=== PATIENT | female | born 1995 | race Caucasian/White ===

== ENCOUNTER 2016-07-31 08:37 | Emergency (ER) | payer BC ==
[2016-07-31 08:50] VITALS: BP 117/60
--- NOTE | 2016-07-31 09:09 | UC ---
Eye Complaint HPI - HPI Summary HPI Summary: 1) L eye itchy, foul drainage, swollen x 2-3 days. Denies photophobia, FB sensation, pain, or visual disturbance. No recent grinding, welding, or overhead work. No contact lens use. 2) itchy bumpy rash on R 3rd lateral finger for "a few weeks." 3) 3 round patches of dry skin on L neck for some days - History of Current Complaint Chief Complaint: UCEye Stated Complaint: EYE COMPLAINT/RASH Time Seen by Provider: 07/31/16 08:45 Hx Obtained From: Patient Hx Last Menstrual Period: 07/09/16 ?: No Onset/Duration: Gradual Onset, Lasting Days Timing: Constant Severity Initially: Mild Severity Currently: Mild Location of Injury: Conjunctiva Aggravating Factor(s): Nothing Alleviating Factor(s): Nothing Associated Signs And Symptoms: Positive: Drainage (Purulent), Swelling. Negative: Photophobia, Vision Impairment Bilateral - Risk Factors Penetrating Injury Risk Factor: Negative Globe Rupture Risk Factors: Negative Acute Glaucoma Risk Factors: Negative - Allergies/Home Medications Allergies/Adverse Reactions: Allergies Allergy/AdvReac Type Severity Reaction Status Date / Time No Known Allergies Allergy Verified 07/31/16 08:45 Home Medications: Home Medications Butalb/Acetamin/Caff TAB* [Fioricet TAB*] 1 tab PO Q6H PRN 07/31/16 [History Confirmed 07/31/16] PMH/Surg Hx/FS Hx/Imm Hx Endocrine History Of: Denies: Diabetes, Thyroid Disease Cardiovascular History Of: Denies: Cardiac Disorders, Hypertension, Pacemaker/ICD Respiratory History Of: Denies: COPD, Asthma GI/ History Of: Denies: Ulcer, Renal Disease - Surgical History Surgical History: Yes Surgery Procedure, Year, and Place: TORN RIGHT ACL REPAIR 04/2013. ADENOIDS 1999 - Family History Known Family History: Negative: Blood Disorder - Social History Occupation: Student Lives: Alone Alcohol Use: Occasionally Substance Use Type: None Smoking Status (MU): Never Smoked Tobacco Review of Systems Constitutional: Negative Skin: Rash Eyes: Drainage, Eye Redness ENT: Negative Respiratory: Negative Cardiovascular: Negative Gastrointestinal: Negative Genitourinary: Negative Motor: Negative Neurovascular: Negative Musculoskeletal: Negative Neurological: Negative Psychological: Negative All Other Systems Reviewed And Are Negative: Yes Physical Exam Triage Information Reviewed: Yes Appearance: Well-Appearing, No Pain Distress, Well-Nourished Vital Signs: Initial Vital Signs Temp 97.6 F 07/31/16 08:46 Pulse 60 07/31/16 08:46 Resp 16 07/31/16 08:46 BP 117/60 07/31/16 08:46 Pulse Ox 100 07/31/16 08:46 Vital Signs Reviewed: Yes Eye Exam: Other - PERRL, no photophobia Eyes: Positive: Conjunctiva Inflamed - L, Discharge - purulent, Other: - L eyelid swelling (upper and lower) ENT Exam: Normal ENT: Positive: Normal ENT inspection, Hearing grossly normal, Pharynx normal, TMs normal Dental Exam: Normal Neck exam: Normal Neck: Positive: Supple, Nontender, No Lymphadenopathy Respiratory Exam: Normal Respiratory: Positive: Chest non-tender, Lungs clear, Normal breath sounds, No respiratory distress, No accessory muscle use Cardiovascular Exam: Normal Cardiovascular: Positive: RRR, No Murmur Musculoskeletal Exam: Normal Neurological Exam: Normal Neurological: Positive: Alert Psychological Exam: Normal Skin: Positive: rashes - 3cm x 2cm area of small flesh-colored vesicles on R 3rd finger., significant lesion(s) - 3 round flat faint macules 1-3cm in diameter with fine scale Eye Complaint Course/Dx - Differential Dx/Diagnosis Provider Diagnoses: L conjunctivitis, suspect bacterial. R hand dyshidrotic eczema. L neck tinea corporis Discharge - Discharge Plan Condition: Stable Disposition: HOME Prescriptions: Ciprofloxacin 0.3% OPTH.GAL* [Cipro 0.3% Opth*] 2 drop LEFT EYE QID #5 ml Patient Education Materials: Conjunctivitis (ED), Eczema (ED), Tinea Corporis ( ED) Referrals: Hoda Cabrera MD [Primary Care Provider] - Additional Instructions: Use the eye drops until you have been symptom-free for 48 hours. Make sure you keep the itchy area on your finger well-moisturized, and you can try using OTC hydrocortisone cream 3 times per day for up to 2 weeks. Try using antifungal cream on the spots on your neck also for 1-2 weeks; I expect them to completely resolve.
== END 2016-07-31 09:20 | disposition home or self-care (01) ==
LOC: UCEAST 08:37
DX: H10.9 Unspecified conjunctivitis (principal); L30.1 Dyshidrosis [pompholyx]; B35.4 Tinea corporis
CPT/HCPCS: 99212; G0463

== ENCOUNTER 2016-12-04 16:47 | Emergency (ER) | payer BC ==
[2016-12-04 18:03] LABS: Hematocrit 42 % (35-47); Hemoglobin 14.2 g/dl (12.0-16.0); Mean Corpuscular HGB Conc 34 g/dl (31-36); Mean Corpuscular Hemoglobin 28 pg (27-31); Mean Corpuscular Volume 85 fL (80-97); Mean Platelet Volume 8 um3 (7.4-10.4); Red Cell Distribution Width 14 % (10.5-15); White Blood Count 13.4 10^3/ul (3.5-10.8)
[2016-12-04 18:14] LABS: ALT 12 U/L (7-52); AST 20 U/L (13-39); Albumin 4.5 g/dL (3.2-5.2); Alkaline Phosphatase 62 U/L (34-104); Anion Gap 8 mmol/L (2-11); BUN/Creatinine Ratio 24.7 (8-20); Blood Urea Nitrogen 21 mg/dL (6-24); C Reactive Protein 2.16 mg/L (< 5.00); CO2 Carbon Dioxide 26 mmol/L (22-32); Calcium 9.7 mg/dL (8.6-10.3); Chloride 102 mmol/L (101-111); EGFR African American 108.6 (>60); EGFR Non-African American 84.4 (>60); Glucose 84 mg/dL (70-100); Lipase 34 U/L (11.0-82.0); Potassium 3.8 mmol/L (3.5-5.0); Sodium 136 mmol/L (133-145); Total Protein 7.5 g/dL (6.4-8.9); Urine Bacteria Absent (Absent); Urine Bilirubin Negative (Negative); Urine Glucose Negative (Negative); Urine Nitrite Negative (Negative)
--- NOTE | 2016-12-04 19:37 | RAD ---
HISTORY: Right upper quadrant pain COMPARISONS: None TECHNIQUE: Multiple transverse and longitudinal ultrasound images were obtained of the right upper quadrant. FINDINGS: LIVER: The liver is normal in size measuring 18.5 cm in greatest dimension. There is increased echogenicity at the interface between the portal veins and portal venous radicles and adjacent liver parenchyma creating the "starry elly" appearance. Normal hepatic and portal venous blood flow is duplicated with color flow imaging. There is no gross intrahepatic biliary duct dilatation. GALLBLADDER AND EXTRAHEPATIC BILIARY DUCT: The gallbladder is normal in appearance without intraluminal stones or other soft tissue masses. There is no pericholecystic fluid or gallbladder wall thickening. The common bile duct measures a maximum diameter of 4 mm. PANCREAS: The portions of the pancreas not obscured by bowel gas are normal in appearance. RIGHT KIDNEY: The right kidney is normal in size, morphology and echogenicity. AORTA AND IVC: The visualized portions are normal in appearance and not pathologically dilated. IMPRESSION: "STARRY ELLY" APPEARANCE OF THE LIVER IS A NONSPECIFIC SONOGRAPHIC FINDING SOMETIMES ASSOCIATED WITH MULTIPLE ETIOLOGIES INCLUDING ACUTE HEPATITIS. PLEASE CORRELATE TO LFTS AND OTHER RELEVANT LABORATORY VALUES. THE EXAMINATION IS OTHERWISE NORMAL.
[2016-12-04] MEDS ORDERED: NS 0.9% 1000 ML* 1,000 ML IV ONE (20:57)
[2016-12-04] MEDS ORDERED: Iohexol 300* (CONTRAST) 10 ML SDV IV ONE (21:25)
--- NOTE | 2016-12-05 00:24 | ED ---
Dannie Jaimes Rebecca, scribed for Del Alcantar MD on 12/04/16 at 2035 . Progress - Progress Note Progress Note: PT was signed out from Dr. Wagoner, pending disposition, awaiting US and CT. - Results/Orders Results/Orders: Gallbladder US, as read by radiologist, reveals: "STARRY RAJ" APPEARANCE OF THE LIVER IS A NONSPECIFIC SONOGRAPHIC FINDING SOMETIMES ASSOCIATED WITH MULTIPLE ETIOLOGIES INCLUDING ACUTE HEPATITIS. PLEASE CORRELATE TO LFTS AND OTHER RELEVANT LABORATORY VALUES. THE EXAMINATION IS OTHERWISE NORMAL. ED physician reviewed radiology report and agrees. CT Abd/Pel, as read by radiologist, reveals: The appendix is not well-visualized. However, there is no right para-cecal inflammation or inflammatory mass. No bowel obstruction, free air, or free fluid. Negative for diverticulitis or colitis. Normal kidneys urinary tract and urinary bladder. Normal gallbladder. Normal spleen. Normal pancreas. Normal adrenal glands. 2.1 cm right adnexal cyst. ED physician reviewed radiology report and agrees. Re-Evaluation - Re-Evaluation First Eval Re-Evaluation Time: 20:54 Change: Unchanged Comment: Reviewed the CT with the pt, which is negative. Explained that she has a R ovarian cyst, which is causing her pain and to follow up with [facility]. Course/Dx - Course Course Of Treatment: PT was signed out from Dr. Wagoner, pending disposition, awaiting US and CT. Gallbladder US, as read by radiologist, reveals: "STARRY RAJ" APPEARANCE OF THE LIVER IS A NONSPECIFIC SONOGRAPHIC FINDING SOMETIMES. ASSOCIATED WITH MULTIPLE ETIOLOGIES INCLUDING ACUTE HEPATITIS. PLEASE CORRELATE TO LFTS. AND OTHER RELEVANT LABORATORY VALUES. THE EXAMINATION IS OTHERWISE NORMAL. ED physician reviewed radiology report and agrees. CT Abd/Pel, as read by radiologist, reveals: The appendix is not well-visualized. However, there is no right para-cecal inflammation or inflammatory mass. No bowel obstruction, free air, or free fluid. Negative for diverticulitis or colitis. Normal kidneys urinary tract and urinary bladder. Normal gallbladder. Normal spleen. Normal pancreas. Normal adrenal glands. 2.1 cm right adnexal cyst. ED physician reviewed radiology report and agrees. The patient is stable and will be D/C to home with Dx of abdominal pain and a follow up with her PCP. She understands and agrees. Elevated BP noted and advised to f/u. - Diagnoses Provider Diagnoses: Abdominal pain The documentation as recorded by the Dannie butterfield Rebecca accurately reflects the service I personally performed and the decisions made by me, Del Alcantar MD.
[2016-12-05 00:30] VITALS: BP 122/66
--- NOTE | 2016-12-05 08:09 | RAD ---
INDICATION: Mid RIGHT abdominal pain; concern for potential appendicitis. COMPARISON: RIGHT upper quadrant ultrasound of the same date. TECHNIQUE: Multidetector CT images were obtained from the lung bases to the ischial tuberosities with 91 mL Omnipaque 300 IV and oral contrast. Multiplanar reformation. REPORT: Unremarkable visualized inferior thorax. Decreased density of the liver consistent with fatty infiltration. No focal hepatic lesions or biliary dilatation. No CT abnormality of the gallbladder, pancreas, spleen. Negative for CT abnormality of the upper GI or small bowel. While the appendix is not discretely visualized, there is no inflammatory change in the right lower quadrant or region of the tip of the cecum to suggest presence of an acute inflammatory process. Enteric contrast extends to the descending colon. No CT abnormality of the colon. Physiologic range small volume of free fluid in the cul-de-sac. Negative for free air or hernias. Normal adrenal glands. Unremarkable kidneys with symmetric nephrograms and pyelograms. Unremarkable nondilated ureters and moderately distended urinary bladder. Multiple pelvic phleboliths noted. Unremarkable rightward deviated anteverted uterus and LEFT adnexal region. 2.3 cm maximum dimension well-circumscribed hypodense although denser than water structure at the RIGHT ovary likely represents a hemorrhagic cyst. This is a low suspicion lesion given small size. Negative for lymphadenopathy. Normal diameter abdominal aorta and iliac arteries. Physiologic distention of the IVC. Negative for suspicious osseous lesions. IMPRESSION: 1. Fatty infiltration of the liver. 2. While the appendix is not discretely visualized, there is no inflammatory change in the right lower quadrant or region of the tip of the cecum to suggest presence of an acute inflammatory process. 3. No acute pathologic process of the alimentary tract evident. 4. Negative for obstructive uropathy. 5. Low suspicion 2.3 cm maximum dimension probable hemorrhagic cyst of the RIGHT ovary.
--- NOTE | 2016-12-06 11:10 | ED ---
Lyle Jaimes Nikita, scribed for Ilia Wagoner MD on 12/04/16 at 1725 . Abdominal Pain/Female - HPI Summary HPI Summary: This patient is a 21 year old F presenting to ED with a chief complaint of RUQ abdominal pain since 5 days ago. The CC is described as sharp. The patient rates the pain 4/10 in severity. Symptoms aggravated by running, palpation, yawning, and laughing. Symptoms alleviated by nothing. Patient reports slight decreased appetite. Patient denies N/V/D, urinary symptoms, and bowel symptoms. Pt was referred to the ED by [facility]. Pt is currently on her menstrual period. PMHx of R ACL REPAIR, ADNOIDECTOMY, MIGRAINES, AND BILAT EUSTACIAN TUBES. - History of Current Complaint Chief Complaint: EDAbdPain Stated Complaint: ABD PAIN Time Seen by Provider: 12/04/16 17:20 Hx Obtained From: Patient Hx Last Menstrual Period: 07/09/16 Onset/Duration: Sudden Onset, Lasting Days - 5 days ago, Still Present Severity Initially: Moderate Severity Currently: Moderate Pain Intensity: 4 Pain Scale Used: 0-10 Numeric Location: Discrete At: RUQ Radiates: No Character: Sharp Aggravating Factor(s): Other: - running, palpation, yawning, and laughing Alleviating Factor(s): Nothing Associated Signs and Symptoms: Positive: Other: - Patient reports slight decreased appetite. Patient denies N/V/D, urinary symptoms, and bowel symptoms. Allergies/Adverse Reactions: Allergies Allergy/AdvReac Type Severity Reaction Status Date / Time No Known Allergies Allergy Verified 07/31/16 08:45 PMH/Surg Hx/FS Hx/Imm Hx Endocrine/Hematology History: Denies: Hx Diabetes, Hx Thyroid Disease Cardiovascular History: Denies: Hx Hypertension, Hx Pacemaker/ICD Respiratory History: Denies: Hx Asthma, Hx Chronic Obstructive Pulmonary Disease (COPD) GI History: Denies: Hx Ulcer History: Denies: Hx Renal Disease Sensory History: Denies: Hx Hearing Aid Neurological History: Reports: Hx Migraine Psychiatric History: Denies: Hx Panic Disorder - Surgical History Surgery Procedure, Year, and Place: TORN RIGHT ACL REPAIR 04/2013. ADENOIDS 2000 Infectious Disease History: No Infectious Disease History: Denies: Hx Hepatitis, Hx Human Immunodeficiency Virus (HIV), Traveled Outside the [place] in Last 30 Days - Family History Known Family History: Negative: Blood Disorder - Social History Alcohol Use: Occasionally Substance Use Type: Reports: None Smoking Status (MU): Never Smoked Tobacco Review of Systems Positive: Abdominal Pain - sharp RUQ pain, Other - Slight decreased appetite; NEGATIVE: bowel symptoms. Negative: Vomiting, Diarrhea, Nausea Positive: other - NEGATIVE: urinary symptoms All Other Systems Reviewed And Are Negative: Yes Physical Exam Triage Information Reviewed: Yes Vital Signs On Initial Exam: Initial Vitals Temp Pulse Resp BP Pulse Ox 98.1 F 70 16 126/75 98 12/04/16 16:55 12/04/16 16:55 12/04/16 16:55 12/04/16 16:55 12/04/16 16:55 Vital Signs Reviewed: Yes Appearance: Positive: Well-Appearing, No Pain Distress Skin: Positive: Warm, Skin Color Reflects Adequate Perfusion, Dry Head/Face: Positive: Normal Head/Face Inspection Eyes: Positive: Normal ENT: Positive: Normal ENT inspection Neck: Positive: Supple, Nontender Respiratory/Lung Sounds: Positive: Clear to Auscultation, Breath Sounds Present Cardiovascular: Positive: RRR Abdomen Description: Positive: Soft, Other: - Mildly RUQ tenderness; Mild Ray 's Sign Diagnostics - Vital Signs Vital Signs Temp Pulse Resp BP Pulse Ox 12/04/16 16:55 98.1 F 70 16 126/75 98 - Laboratory Lab Results: Lab Results 12/04/16 12/04/16 12/04/16 Range/Units 17:50 17:50 17:50 WBC 13.4 H (3.5-10.8) 10^3/ul RBC 5.00 (4.0-5.4) 10^6/ul Hgb 14.2 (12.0-16.0) g/dl Hct 42 (35-47) % MCV 85 (80-97) fL MCH 28 (27-31) pg MCHC 34 (31-36) g/dl RDW 14 (10.5-15) % Plt Count 337 (150-450) 10^3/ul MPV 8 (7.4-10.4) um3 Neut % (Auto) 72.1 (38-83) % Lymph % (Auto) 19.9 L (25-47) % [place] % (Auto) 6.8 (1-9) % Eos % (Auto) 0.7 (0-6) % Baso % (Auto) 0.5 (0-2) % Absolute Neuts (auto) 9.7 H (1.5-7.7) 10^3/ul Absolute Lymphs (auto) 2.7 (1.0-4.8) 10^3/ul Absolute Monos (auto) 0.9 H (0-0.8) 10^3/ul Absolute Eos (auto) 0.1 (0-0.6) 10^3/ul Absolute Basos (auto) 0.1 (0-0.2) 10^3/ul Absolute Nucleated RBC 0 10^3/ul Nucleated RBC % 0 Sodium 136 (133-145) mmol/L Potassium 3.8 (3.5-5.0) mmol/L Chloride 102 (101-111) mmol/L Carbon Dioxide 26 (22-32) mmol/L Anion Gap 8 (2-11) mmol/L BUN 21 (6-24) mg/dL Creatinine 0.85 (0.51-0.95) mg/dL Est GFR ( Amer) 108.6 (>60) Est GFR (Non-Af Amer) 84.4 (>60) BUN/Creatinine Ratio 24.7 H (8-20) Glucose 84 (70-100) mg/dL Lactic Acid 0.7 (0.5-2.0) mmol/L Calcium 9.7 (8.6-10.3) mg/dL Total Bilirubin 0.70 (0.2-1.0) mg/dL AST 20 (13-39) U/L ALT 12 (7-52) U/L Alkaline Phosphatase 62 (34-104) U/L C-Reactive Protein 2.16 (< 5.00) mg/L Total Protein 7.5 (6.4-8.9) g/dL Albumin 4.5 (3.2-5.2) g/dL Globulin 3.0 (2-4) g/dL Albumin/Globulin Ratio 1.5 (1-3) Lipase 34 (11.0-82.0) U/L Beta HCG, Quant < 0.60 mIU/mL Urine Color Urine Appearance Urine pH (5-9) Ur Specific [place] (1.010-1.030) Urine Protein (Negative) Urine Ketones (Negative) Urine Blood (Negative) Urine Nitrate (Negative) Urine Bilirubin (Negative) Urine Urobilinogen (Negative) Ur Leukocyte Esterase (Negative) Urine WBC (Auto) (Absent) Urine RBC (Auto) (Absent) Ur Squamous Epith Cells (Absent) Urine Bacteria (Absent) Urine Glucose (Negative) Urine Ascorbic Acid (Negative) Hepatitis A IgM Ab (Nonreactive) Hep Bs Antigen (Nonreactive) Hep B Core IgM Ab (Nonreactive) Hepatitis C Antibody (Nonreactive) 12/04/16 12/04/16 Range/Units 17:50 17:50 WBC (3.5-10.8) 10^3/ul RBC (4.0-5.4) 10^6/ul Hgb (12.0-16.0) g/dl Hct (35-47) % MCV (80-97) fL MCH (27-31) pg MCHC (31-36) g/dl RDW (10.5-15) % Plt Count (150-450) 10^3/ul MPV (7.4-10.4) um3 Neut % (Auto) (38-83) % Lymph % (Auto) (25-47) % [place] % (Auto) (1-9) % Eos % (Auto) (0-6) % Baso % (Auto) (0-2) % Absolute Neuts (auto) (1.5-7.7) 10^3/ul Absolute Lymphs (auto) (1.0-4.8) 10^3/ul Absolute Monos (auto) (0-0.8) 10^3/ul Absolute Eos (auto) (0-0.6) 10^3/ul Absolute Basos (auto) (0-0.2) 10^3/ul Absolute Nucleated RBC 10^3/ul Nucleated RBC % Sodium (133-145) mmol/L Potassium (3.5-5.0) mmol/L Chloride (101-111) mmol/L Carbon Dioxide (22-32) mmol/L Anion Gap (2-11) mmol/L BUN (6-24) mg/dL Creatinine (0.51-0.95) mg/dL Est GFR ( Amer) (>60) Est GFR (Non-Af Amer) (>60) BUN/Creatinine Ratio (8-20) Glucose (70-100) mg/dL Lactic Acid (0.5-2.0) mmol/L Calcium (8.6-10.3) mg/dL Total Bilirubin (0.2-1.0) mg/dL AST (13-39) U/L ALT (7-52) U/L Alkaline Phosphatase (34-104) U/L C-Reactive Protein (< 5.00) mg/L Total Protein (6.4-8.9) g/dL Albumin (3.2-5.2) g/dL Globulin (2-4) g/dL Albumin/Globulin Ratio (1-3) Lipase (11.0-82.0) U/L Beta HCG, Quant mIU/mL Urine Color Yellow Urine Appearance Clear Urine pH 5.0 (5-9) Ur Specific [place] 1.019 (1.010-1.030) Urine Protein Negative (Negative) Urine Ketones 1+ H (Negative) Urine Blood Negative (Negative) Urine Nitrate Negative (Negative) Urine Bilirubin Negative (Negative) Urine Urobilinogen Negative (Negative) Ur Leukocyte Esterase Trace H (Negative) Urine WBC (Auto) Trace(0-5/hpf) (Absent) Urine RBC (Auto) Trace(0-2/hpf) (Absent) Ur Squamous Epith Cells Present H (Absent) Urine Bacteria Absent (Absent) Urine Glucose Negative (Negative) Urine Ascorbic Acid * H (Negative) Hepatitis A IgM Ab Nonreactive (Nonreactive) Hep Bs Antigen Nonreactive (Nonreactive) Hep B Core IgM Ab Nonreactive (Nonreactive) Hepatitis C Antibody Nonreactive (Nonreactive) Result Diagrams: 12/04/16 17:50 12/04/16 17:50 Lab Statement: Any lab studies that have been ordered have been reviewed, and results considered in the medical decision making process. - Ultrasound No standard instances Ultrasound Interpretation Completed By: Radiologist - Gallbladder US: Pending official interpretation from radiologist. See [employer]. Abdominal Pain Fem Course/Dx - Course Course Of Treatment: Ms. Parker presented with several days of RUQ pain and mild tenderness. Her WBC's are slightly increased and labs are otherwise normal. She is awaiting and U/S of her RUQ at change of shift. - Diagnoses Provider Diagnoses: Abdominal pain Discharge - Discharge Plan Condition: Stable Disposition: OTHER Discharge Disposition Comment: Pt is signed out to Dr. Alcantar, pending disposition , awaiting US Gallbladder. Patient Education Materials: Abdominal Pain (ED) Referrals: Pending Sale To [facility] [Primary Care Provider] - 3 Days The documentation as recorded by the Lyle butterfield Nikita accurately reflects the service I personally performed and the decisions made by me, Ilia Wagoner MD.
== END 2016-12-05 00:32 ==
LOC: ED 16:47
DX: R10.11 Right upper quadrant pain (principal); K76.0 Fatty (change of) liver, not elsewhere classified
CPT/HCPCS: 36415; 74177; 76705; 80053; 80074; 81003; 81015; 83605; 83690; 84702; 85025; 86140; 87086; 96360; 99284; Q9967

== ENCOUNTER 2017-02-21 21:42 | Emergency (ER) | payer BC ==
[2017-02-21 23:17] LABS: Hematocrit 45 % (35-47); Hemoglobin 15.3 g/dl (12.0-16.0); Mean Corpuscular HGB Conc 34 g/dl (31-36); Mean Corpuscular Hemoglobin 29 pg (27-31); Mean Corpuscular Volume 85 fL (80-97); Mean Platelet Volume 8 um3 (7.4-10.4); Red Blood Count 5.31 10^6/ul (4.0-5.4); Red Cell Distribution Width 14 % (10.5-15)
[2017-02-21 23:33] LABS: ALT 9 U/L (7-52); AST 17 U/L (13-39); Albumin 4.5 g/dL (3.2-5.2); Alkaline Phosphatase 45 U/L (34-104); Anion Gap 7 mmol/L (2-11); BUN/Creatinine Ratio 20.2 (8-20); Blood Urea Nitrogen 17 mg/dL (6-24); CO2 Carbon Dioxide 28 mmol/L (22-32); Calcium 9.4 mg/dL (8.6-10.3); Chloride 100 mmol/L (101-111); EGFR Non-African American 84.8 (>60); Globulin 2.7 g/dL (2-4); Glucose 105 mg/dL (70-100); Lipase < 10 U/L (11.0-82.0); Potassium 3.8 mmol/L (3.5-5.0); Sodium 135 mmol/L (133-145); Total Protein 7.2 g/dL (6.4-8.9)
[2017-02-21] MEDS ORDERED: Ondansetron INJ* 2 MG/ML VIAL IV ONE (23:57)
[2017-02-21] MEDS ORDERED: Ketorolac INJ* 30 MG/ML 1 ML VIAL IV PUSH ONE (23:57)
[2017-02-21] MEDS ORDERED: NS 0.9% 1000 ML* 1,000 ML IV ONE (23:57)
--- NOTE | 2017-02-22 01:03 | ED ---
GI/ HPI - HPI Summary HPI Summary: 22F presents with n/v/d for today. She admits to generalized abdominal pain. She states she has had a fever. She denies eating different or any one else being sick. She has been unable to eat anything due to the vomiting. She denies any dysuria, hematuria, flank pain, urgency or frequency. She states pain is cramp like. She denies any cough or sore throat. She denies any vaginal discharge. pain is 6/10. She had a couple episode of diarrhea that has stopped. - History of Current Complaint Chief Complaint: EDNauseaVomitDiarrh Time Seen by Provider: 02/21/17 23:39 Stated Complaint: VOMITING Hx Last Menstrual Period: 07/09/16 Pain Intensity: 3 - Allergy/Home Medications Allergies/Adverse Reactions: Allergies Allergy/AdvReac Type Severity Reaction Status Date / Time No Known Allergies Allergy Verified 07/31/16 08:45 PMH/Surg Hx/FS Hx/Imm Hx Endocrine/Hematology History: Denies: Hx Diabetes, Hx Thyroid Disease Cardiovascular History: Denies: Hx Hypertension, Hx Pacemaker/ICD Respiratory History: Denies: Hx Asthma, Hx Chronic Obstructive Pulmonary Disease (COPD) GI History: Denies: Hx Ulcer History: Denies: Hx Dialysis, Hx Renal Disease Sensory History: Denies: Hx Hearing Aid Neurological History: Reports: Hx Migraine Psychiatric History: Denies: Hx Panic Disorder - Surgical History Surgery Procedure, Year, and Place: TORN RIGHT ACL REPAIR 04/2013. [facility] 1999 Infectious Disease History: No Infectious Disease History: Denies: Hx Hepatitis, Hx Human Immunodeficiency Virus (HIV), Traveled Outside the [place] in Last 30 Days - Family History Known Family History: Negative: Blood Disorder - Social History Alcohol Use: Occasionally Substance Use Type: Reports: None Smoking Status (MU): Never Smoked Tobacco Review of Systems Positive: Fever Negative: Chest Pain Negative: Shortness Of Breath Positive: Abdominal Pain, Vomiting, Diarrhea, Nausea All Other Systems Reviewed And Are Negative: Yes Physical Exam Triage Information Reviewed: Yes Vital Signs On Initial Exam: Initial Vitals Temp Pulse Resp BP Pulse Ox 98.0 F 75 15 118/74 97 02/21/17 21:48 02/21/17 21:48 02/21/17 21:48 02/21/17 21:48 02/21/17 21:48 Vital Signs Reviewed: Yes Appearance: Positive: Well-Appearing Skin: Positive: Warm, Dry Head/Face: Positive: Normal Head/Face Inspection Eyes: Positive: Normal, EOMI, DURGA, Conjunctiva Clear ENT: Positive: Normal ENT inspection, Pharynx normal, TMs normal Respiratory/Lung Sounds: Positive: Clear to Auscultation, Breath Sounds Present Cardiovascular: Positive: Normal, RRR Abdomen Description: Positive: Nontender, Soft Bowel Sounds: Positive: Present Musculoskeletal: Positive: Normal Neurological: Positive: Normal Psychiatric: Positive: Normal Diagnostics - Vital Signs Vital Signs Temp Pulse Resp BP Pulse Ox 02/21/17 21:48 98.0 F 75 15 118/74 97 - Laboratory Lab Results: Lab Results 02/21/17 02/21/17 Range/Units 22:41 22:41 WBC 9.0 (3.5-10.8) 10^3/ul RBC 5.31 (4.0-5.4) 10^6/ul Hgb 15.3 (12.0-16.0) g/dl Hct 45 (35-47) % MCV 85 (80-97) fL MCH 29 (27-31) pg MCHC 34 (31-36) g/dl RDW 14 (10.5-15) % Plt Count 277 (150-450) 10^3/ul MPV 8 (7.4-10.4) um3 Neut % (Auto) 84.4 H (38-83) % Lymph % (Auto) 8.2 L (25-47) % Loving % (Auto) 6.9 (1-9) % Eos % (Auto) 0.1 (0-6) % Baso % (Auto) 0.4 (0-2) % Absolute Neuts (auto) 7.6 (1.5-7.7) 10^3/ul Absolute Lymphs (auto) 0.7 L (1.0-4.8) 10^3/ul Absolute Monos (auto) 0.6 (0-0.8) 10^3/ul Absolute Eos (auto) 0 (0-0.6) 10^3/ul Absolute Basos (auto) 0 (0-0.2) 10^3/ul Absolute Nucleated RBC 0 10^3/ul Nucleated RBC % 0 Sodium 135 (133-145) mmol/L Potassium 3.8 (3.5-5.0) mmol/L Chloride 100 L (101-111) mmol/L Carbon Dioxide 28 (22-32) mmol/L Anion Gap 7 (2-11) mmol/L BUN 17 (6-24) mg/dL Creatinine 0.84 (0.51-0.95) mg/dL Est GFR ( Amer) 109.0 (>60) Est GFR (Non-Af Amer) 84.8 (>60) BUN/Creatinine Ratio 20.2 H (8-20) Glucose 105 H (70-100) mg/dL Calcium 9.4 (8.6-10.3) mg/dL Total Bilirubin 0.90 (0.2-1.0) mg/dL AST 17 (13-39) U/L ALT 9 (7-52) U/L Alkaline Phosphatase 45 (34-104) U/L C-React Prot High Sens 75.74 mg/L Total Protein 7.2 (6.4-8.9) g/dL Albumin 4.5 (3.2-5.2) g/dL Globulin 2.7 (2-4) g/dL Albumin/Globulin Ratio 1.7 (1-3) Lipase < 10 L (11.0-82.0) U/L Beta HCG, Quant < 0.60 mIU/mL Result Diagrams: 02/21/17 22:41 02/21/17 22:41 Lab Statement: Any lab studies that have been ordered have been reviewed, and results considered in the medical decision making process. GIGU Course/Dx - Course Course Of Treatment: 22F presents with n/v/d for today. She admits to generalized abdominal pain. She states she has had a fever. She denies eating different or any one else being sick. She has been unable to eat anything due to the vomiting. She denies any dysuria, hematuria, flank pain, urgency or frequency. She states pain is cramp like. She denies any cough or sore throat. She denies any vaginal discharge. pain is 6/10. She had a couple episode of diarrhea that has stopped. on exam nontender abdomen. labs normal wbc. gave iv fluids and zofran feeling better. patient understand and agrees with plan. - Diagnoses Differential Diagnoses - Female: Gastroenteritis (Viral), Gastroenteritis ( Bacterial), Urinary Tract Infection Provider Diagnoses: Nausea vomiting and diarrhea Discharge - Discharge Plan Condition: Good Disposition: HOME Prescriptions: Ondansetron ODT TAB* [Zofran 4 MG Odt TAB*] 4 mg PO Q6H PRN #20 tab.odt PRN Reason: Nausea Patient Education Materials: Acute Nausea and Vomiting (ED) [facility] - Additional Instructions: Can take Zofran every 6 hours as needed for nausea Drink small amounts of fluid as tolerated When able to eat follow BRAT diet: Bananas, rice, applesauce, toast Take ibuprofen or Tylenol for pain as needed every 6 hours Follow up with primary within 5 days Return to ED if develop fever that does not respond to Tylenol or ibuprofen, severe abdominal pain, or any new or worsening symptoms
[2017-02-22] MEDS ORDERED: Ondansetron ODT TAB* 4 MG PO ONE (02:17)
[2017-02-22 03:51] VITALS: BP 109/49
== END 2017-02-22 03:20 | disposition home or self-care (01) ==
LOC: ED 21:42
DX: R11.2 Nausea with vomiting, unspecified (principal); R19.7 Diarrhea, unspecified
CPT/HCPCS: 36415; 80053; 83690; 84702; 85025; 86141; 96360; 96374; 96375; 99282; A9270-GY; J1885; J2405